=== PATIENT | male | born 1960 | race Caucasian/White ===

== ENCOUNTER 2019-04-28 16:34 | Emergency (ER) | payer OTHER ==
[2019-04-28 16:48] VITALS: BP 148/100
--- NOTE | 2019-04-28 16:52 | ED Physician Documentation ---
PD HPI LOWER EXT INJURY - Stated complaint Stated Complaint: LEFT ANKLE INJURY - Chief complaint Chief Complaint: Ext Problem - History obtained from History obtained from: Patient - History of Present Illness PD HPI LOW EXT INJURY LOCATION: Left, Ankle (He inverted his left ankle a few days ago and has increasingly severe pain all about the left ankle with difficulty walking. Declines pain medication on initial evaluation. No other injuries.) Review of Systems Constitutional: reports: Reviewed and negative Cardiac: reports: Reviewed and negative Respiratory: reports: Reviewed and negative PD PAST MEDICAL HISTORY - Past Medical History Past Medical History: Yes Neuro: Other (Late onset muscular dystrophy) - Allergies Allergies/Adverse Reactions: Allergies Allergy/AdvReac Type Severity Reaction Status Date / Time No Known Drug Allergies Allergy Verified 04/28/19 16:48 - Family History Family history: reports: Non contributory PD ED PE NORMAL - Vitals Vital signs reviewed: Yes - General General: Alert and oriented X 3, No acute distress - Extremities Extremities: Other (He points To the Achilles tendon and medially as the site of the pain of the left ankle. Whitfield's test is normal and he does not have any pain with Whitfield's test. He is tender over the talus more so than either malleolus. No foot tenderness. No proximal fibular tenderness.) - Neuro Neuro: Alert and oriented X 3, Normal speech Results - Vitals Vitals: Vital Signs - 24 hr 04/28/19 16:37 Temperature 36.5 C Heart Rate 75 Respiratory 20 Rate Blood Pressure 148/100 H O2 Saturation 96 Oxygen O2 Source Room air - Rads (name of study) L ankle 3v Radiology: EMP read contemporaneously (NAD), See rad report Departure - Departure Disposition: 01 Home, Self Care Clinical Impression: Left ankle sprain Condition: Good Record reviewed to determine appropriate education?: Yes Instructions: ED Sprain Ankle W X Ray Follow-Up: [facility] [Provider Group] - Within 1 week Comments: While you are in transition, if you are having persistent problems you [place] this [place]. Return for new or worsening symptoms. You may walk and bear weight as tolerated. I recommend keeping the air cast on when you are up and around but you do not have to sleep with it on or keep it on for bathing etc. Your blood pressure was elevated today on check into the emergency department. This does not mean that you have hypertension, it is a common phenomenon to come to the emergency department and have elevated blood pressure. I recommend that you see your primary care physician within the week to have it rechecked when you are feeling better.
--- NOTE | 2019-04-28 17:42 | XRAY Report ---
Reason: injury Procedure Date: 04/28/2019 Accession Number: [id number] / [id number] Procedure: XR - Ankle 3 View LT CPT Code: FULL RESULT: EXAM: LEFT ANKLE RADIOGRAPHY EXAM DATE: 04/28/2019 04:55 PM. CLINICAL HISTORY: Ankle pain COMPARISON: None. TECHNIQUE: 3 views. FINDINGS: Bones: No evidence of acute fracture. There are calcaneal enthesophytes. Joints: No evidence of dislocation. Soft Tissues: There is mild soft tissue swelling. IMPRESSION: No evidence of fracture or dislocation. [facility]
== END 2019-04-28 18:12 | disposition home or self-care (01) ==
LOC: ED 16:34
DX: S93.402A Sprain of unspecified ligament of left ankle, initial encounter (principal); X50.1XXA Overexertion from prolonged static or awkward postures, initial encounter; R03.0 Elevated blood-pressure reading, without diagnosis of hypertension
CPT/HCPCS: 99282; 99283

== ENCOUNTER 2021-04-10 08:44 | Outpatient (CLI) | payer OTHER | END 2021-04-10 08:45 | disposition short-term general hospital (02) | LOC: EMS 08:44 | DX: R05 Cough (principal); R06.02 Shortness of breath; R53.1 Weakness | CPT/HCPCS: A0425; A0427 ==